=== PATIENT | male | born 1960 | race Caucasian/White ===

== ENCOUNTER 2024-04-19 08:15 | Day surgery (SDC) | payer BC, MEDICARE ==
[2024-04-13 16:04] LABS: BASOPHILS % (AUTO) 0.4 % (0-1); EOSINOPHILS # (AUTO) 0.1 X10'3 (0-0.9); EOSINOPHILS % (AUTO) 2.6 % (0-6); LYMPHOCYTES # (AUTO) 1.4 X10'3 (1.1-4.8); LYMPHOCYTES % (AUTO) 25.8 % (21-51); MEAN CORPUSCULAR HEMOGLOBIN 31.3 PG (27.0-31.0); MEAN CORPUSCULAR HGB CONC 33.9 g/dL (33.0-36.5); MEAN CORPUSCULAR VOLUME 92.4 FL (78-98); MEAN PLATELET VOLUME 8.1 FL (7.4-10.4); MONOCYTES # (AUTO) 0.6 X10'3 (0-0.9); MONOCYTES % (AUTO) 10.3 % (2-12); NEUTROPHILS # (AUTO) 3.4 X10'3 (1.8-7.7); NEUTROPHILS % (AUTO) 60.9 % (42-75); PRE OP HEMATOCRIT 42.1 % (42.0-52.0); PRE OP HEMOGLOBIN 14.2 g/dL (14.0-17.9); PRE OP PLATELET COUNT 218 X10'3 (140-440); PRE OP WHITE BLOOD COUNT 5.5 10'3 (4.8-10.8); RED BLOOD COUNT 4.55 X10'6 (4.70-6.10); RED CELL DISTRIBUTION WIDTH 12.6 % (11.5-14.5)
[2024-04-13 16:21] LABS: ALBUMIN 3.7 G/DL (3.4-5.0); ALBUMIN/GLOBULIN RATIO 1.1 (1.1-1.5); ALKALINE PHOSPHATASE 71 IU/L (46-116); BLOOD UREA NITROGEN 21 MG/DL (7-18); BUN/CREATININE RATIO 22.8 (10.0-20.0); CALCIUM 8.8 MG/DL (8.5-10.1); CHLORIDE 108 MMOL/L (99-107); CREATININE 0.92 MG/DL (0.60-1.10); PRE OP ALT 39 U/L (30-65); PRE OP ANION GAP 5 (8-16); PRE OP AST 21 U/L (10-37); PRE OP BILIRUB, TOTAL 0.4 MG/DL (0.0-1.0); PRE OP GLUCOSE 98 MG/DL (70-104); PRE OP SODIUM 143 MMOL/L (135-145); TOTAL CARBON DIOXIDE 30.4 MMOL/L (24-32); eGFR 83 ML/MIN
[2024-04-19] VITALS (7 sets, daily range): BP systolic 100–143; BP diastolic 63–77; PULSE 42–52; RESP 12–16; TEMP 97.8; O2SAT 96–97
[~2024-04-19] VITALS: Ht 185.4 cm; Wt 96.0 kg
[2024-04-19] MEDS: CLINDAMYCIN 600mg IN NS 50ML 50 ML IV ONE (05:30)
[~2024-04-19 08:15] MED LIST: ASPI-1265 PO; ATOR20TA PO; CO Q 10; FISH OIL; GLUC15006 PO; MVI; NAPR220C15 PO; [UNRECOGNIZED DRUG - OTHER]; cefazolin 2gm/D5W 100mL 100 ML IV ONE
[2024-04-19] MEDS ORDERED: ondansetron/PF 4mg/2ml inj IV PRN (08:40)
[2024-04-19] MEDS ORDERED: labetalol 20mg/4ml (5mg/ml) syringe IV PRN (08:40)
[2024-04-19] MEDS ORDERED: ringers solution, lacted 1,000 ML IV SCH (08:40)
[2024-04-19] MEDS ORDERED: morphine 4 MG/ML inj SYRINge IV PRN (08:40)
[2024-04-19] MEDS ORDERED: morphine 2 MG/ML inj. syringe IV PRN (08:40)
[2024-04-19] MEDS ORDERED: BUPIVAcaine/PF 2.5mg/ml (0.25%) 10ml vial ONE (08:42)
[2024-04-19] MEDS ORDERED: LIDOcaine 1% (10mg/ml)w/preservative inj. 20ml MDV ONE (08:42)
[2024-04-19] MEDS: famotidine 20mg tablet PO ONE (08:49)
[2024-04-19] MEDS: ringers solution, lacted 1,000 ML IV SCH (08:49)
[2024-04-19] MEDS ORDERED: MIDAZolam 1 MG/ML 5ML VIAL ONE (09:04)
[2024-04-19] MEDS ORDERED: fentaNYL/PF 50MCG/1 ML 2ML syringe ONE (09:04)
[2024-04-19] MEDS ORDERED: LIDOcaine 0.5% (5mg/ml) 50ml vial ONE (09:05)
[2024-04-19] MEDS ORDERED: ketorolac trometh. 30mg/ml inj. ONE (09:05)
[2024-04-19] MEDS: LIDOcaine 1% 30ml preserv. free vial IJ ONE (09:49)
== END 2024-04-19 10:36 | disposition home or self-care (01) ==
LOC: PAS 08:15
PROVIDERS: ATTEND Orthopaedic Surgery Hand Surgery
DX: T84.84XA Pain due to internal orthopedic prosthetic devices, implants and grafts, initial encounter (principal); E78.00 Pure hypercholesterolemia, unspecified; Z87.891 Personal history of nicotine dependence; Z79.891 Long term (current) use of opiate analgesic; Z79.899 Other long term (current) drug therapy; Z98.890 Other specified postprocedural states; Z88.0 Allergy status to penicillin; Y79.2 Prosthetic and other implants, materials and accessory orthopedic devices associated with adverse incidents; Y92.89 Other specified places as the place of occurrence of the external cause
CPT/HCPCS: 20680; 36415; 80053; 82948; 85025; 93005; J1885; J2250; J3010; J3490; J7030; J7120; Z7506; Z7512; A4215; A4618; A6449; A7000; J0665